=== PATIENT | male | born 1955 | race Caucasian/White ===

== ENCOUNTER 2022-11-17 06:36 | Day surgery (SDC) | payer MEDICARE, BC ==
[2022-11-11 09:32] LABS: BASOPHILS % (AUTO) 0.6 % (0-1); EOSINOPHILS # (AUTO) 0.1 X10'3 (0-0.9); EOSINOPHILS % (AUTO) 1.5 % (0-6); HEMATOCRIT 46.7 % (42.0-52.0); LYMPHOCYTES # (AUTO) 1.2 X10'3 (1.1-4.8); LYMPHOCYTES % (AUTO) 19.6 % (21-51); MEAN CORPUSCULAR HEMOGLOBIN 32.3 PG (27.0-31.0); MEAN CORPUSCULAR HGB CONC 34.4 g/dL (33.0-36.5); MEAN PLATELET VOLUME 9.3 FL (7.4-10.4); MONOCYTES # (AUTO) 0.6 X10'3 (0-0.9); MONOCYTES % (AUTO) 10.4 % (2-12); NEUTROPHILS # (AUTO) 4.2 X10'3 (1.8-7.7); NEUTROPHILS % (AUTO) 67.9 % (42-75); PLATELET COUNT 205 X10'3 (140-440); RED BLOOD COUNT 4.96 X10'6 (4.70-6.10); WHITE BLOOD COUNT 6.2 X10'3 (4.5-11.0)
[2022-11-11 09:41] LABS: APTT 28 SECONDS (22-32)
[2022-11-11 09:46] LABS: ALANINE AMINOTRANSFERASE 21 U/L (12-78); ALBUMIN 4.1 G/DL (3.4-5.0); ALBUMIN/GLOBULIN RATIO 1.3 (1.1-1.5); ALKALINE PHOSPHATASE 76 IU/L (46-116); ANION GAP 3 (8-16); ASPARTATE AMINO TRANSFERASE 19 U/L (10-37); BILIRUBIN,TOTAL 0.5 MG/DL (0.1-1.0); BLOOD UREA NITROGEN 21 MG/DL (7-18); BUN/CREATININE RATIO 25.6 (10.0-20.0); CALCIUM 8.7 MG/DL (8.5-10.1); CHLORIDE 106 MMOL/L (99-107); CREATININE 0.82 MG/DL (0.60-1.10); GLUCOSE 93 MG/DL (70-104); POTASSIUM 4.1 MMOL/L (3.5-5.1); SODIUM 142 MMOL/L (135-145); TOTAL CARBON DIOXIDE 32.7 MMOL/L (24-32); TOTAL PROTEIN 7.3 G/DL (6.4-8.2); eGFR > 90 ML/MIN
[2022-11-17] VITALS (10 sets, daily range): BP systolic 122–140; BP diastolic 70–87
[~2022-11-17] VITALS: Ht 175.3 cm; Wt 109.8 kg
[2022-11-17] MEDS ORDERED: diphenhydrAMINE 25mg capsule PO PRN (07:00)
[2022-11-17] MEDS ORDERED: nitroGLYCERIN 0.4mg SUBLingual tab SL PRN ×2 (07:00→10:25)
[2022-11-17] MEDS ORDERED: normal saline 1,000 ML IV SCH (07:00)
[2022-11-17] MEDS ORDERED: LORazepam 0.5 MG tablet PO PRN (07:00)
[2022-11-17] MEDS ORDERED: MULT-1249 PO (07:07)
[2022-11-17] MEDS ORDERED: ALBU8HFA PO (07:07)
[2022-11-17] MEDS ORDERED: PHEN100C12 PO (07:07)
[2022-11-17] MEDS ORDERED: NAPR220T67 PO (07:07)
[2022-11-17] MEDS ORDERED: ACET-1025 PO (07:07)
[2022-11-17] MEDS ORDERED: ASCO-139 PO (07:07)
[2022-11-17] MEDS ORDERED: OMEP40CA21 PO (07:07)
[2022-11-17] MEDS ORDERED: midazolam 1 mg/ML 2ml injection ONE (08:33)
[2022-11-17] MEDS ORDERED: iohexol 350MG/ML 100ml bottle IV ONE (08:33)
[2022-11-17] MEDS ORDERED: fentaNYL/PF 50MCG/1 ML 2ML syringe ONE (08:33)
[2022-11-17] MEDS ORDERED: iohexol 350 MG/ML 50ML vial IV ONE (09:06)
[2022-11-17] MEDS ORDERED: LIDOcaine 1% 30ml preserv. free vial ONE (09:38)
[2022-11-17] MEDS ORDERED: ondansetron/PF 4mg/2ml inj IV PRN (10:20)
[2022-11-17] MEDS ORDERED: normal saline 1000ml 1,000 ML IV SCH (10:20)
[2022-11-17] MEDS ORDERED: proCHLORperazine 10 MG/2 ml inj IV PRN (10:25)
[2022-11-17] MEDS ORDERED: OXAZEpam 15mg capsule PO PRN (10:25)
[2022-11-17] MEDS ORDERED: HYDROcodone/acetaminophen 5mg/325mg tablet PO PRN (10:25)
[2022-11-17] MEDS ORDERED: HYDROcodone/acetaminophen 10/325mg tab PO PRN (10:25)
== END 2022-11-17 15:45 | disposition home or self-care (01) ==
LOC: SSTAY O 06:36
PROVIDERS: ATTEND Internal Medicine Cardiovascular Disease
DX: R94.39 Abnormal result of other cardiovascular function study (principal); I25.10 Atherosclerotic heart disease of native coronary artery without angina pectoris; G40.909 Epilepsy, unspecified, not intractable, without status epilepticus; J44.9 Chronic obstructive pulmonary disease, unspecified; K21.9 Gastro-esophageal reflux disease without esophagitis; M47.9 Spondylosis, unspecified; E78.5 Hyperlipidemia, unspecified; F32.A Depression, unspecified; Z72.89 Other problems related to lifestyle; Z98.890 Other specified postprocedural states; Z87.891 Personal history of nicotine dependence; Z79.01 Long term (current) use of anticoagulants; Z79.899 Other long term (current) drug therapy
CPT/HCPCS: 36415; 71046; 80053; 85025; 85610; 85730; 93005; 93458; 99152; C1760; J1644; J2250; J3010; J3490; J7030; Q0163; Q9967; 99153; A4615; A6258